=== PATIENT | male | born 1955 | race Caucasian/White ===

== ENCOUNTER → 2017-04-02 | Outpatient (CLI) | payer BC | END | disposition home or self-care (01) | LOC: RADUSWWP 14:18 | PROVIDERS: ATTEND Family Medicine | DX: I73.9 Peripheral vascular disease, unspecified (principal); R69 Illness, unspecified; Z89.431 Acquired absence of right foot | CPT/HCPCS: 93923 ==

== ENCOUNTER → 2018-02-09 | Outpatient (CLI) | payer BC ==
--- NOTE | 2018-02-09 15:03 | US ---
EXAMINATION TYPE: US kidneys/renal and bladder DATE OF EXAM: 02/09/2018 COMPARISON: 03/22/2016 CLINICAL HISTORY: 62-year-old male N28.9 Disorder of kidney and ureter. Abnormal labs Findings: Right Kidney: 12.7 x 5.7 x 6.1 cm Left Kidney: 12.8 x 6.0 x 4.5 cm No hydronephrosis on either side. There is mild circumferential bladder wall thickening measuring up to 8.1 mm. Neither ureteral jet is seen during the course of the exam. IMPRESSION: 1. No hydronephrosis. 2. Circumferential bladder wall thickening could relate to under distention or cystitis.
== END | disposition home or self-care (01) ==
LOC: RADUSWWP 14:05
PROVIDERS: ATTEND Family Medicine
DX: N32.89 Other specified disorders of bladder (principal)
CPT/HCPCS: 76770